=== PATIENT | male | born 2000 | race African-American/Black ===

== ENCOUNTER 2020-02-18 13:46 | Inpatient (IN) | payer MEDICAID, OTHER ==
[~2020-02-18] VITALS: Ht 175.3 cm; Wt 100.6 kg
[2020-02-18] MEDS ORDERED: SODIUM CHLORIDE 0.9% 1,000 ML IV ONE ×2 (13:52)
[2020-02-18] MEDS ORDERED: NALOXONE HCL 1MG/ML 2ML SYRINGE ONE (14:18)
[2020-02-18 14:19] LABS: Basophils # (auto) 0 10 ^3/uL (0-0.2); Basophils % (auto) 0.2 % (0.0-2.0); Eosinophils # (auto) 0 10 ^3/uL (0-0.8); Eosinophils % (auto) 0.1 % (0.0-7.0); Hematocrit 47.9 % (41.0-53.0); Hemoglobin 15.5 g/dL (13.5-17.5); Lymphocytes % (auto) 6.6 % (10.0-50.0); Mean Corpuscular Hemoglobin 30.7 pg (28.0-32.0); Mean Corpuscular Hgb Conc. 32.4 g/dL (32.0-36.0); Mean Corpuscular Volume 94.7 fL (80.0-100.0); Monocytes # (auto) 0.4 10 ^3/uL (0-1.3); Monocytes % (auto) 2.5 % (0.0-12.0); Neutrophils # (auto) 14.2 10 ^3/uL (1.6-8.6); Neutrophils % (auto) 90.6 % (37.0-80.0); Nucleated Red Blood Cells % 0.2 %; Platelet Count (auto) 222 10^3/uL (140-450); Red Blood Cells 5.06 10^6/uL (4.5-5.90); Red Cell Distribution Width 13.2 % (11.8-14.3); White Blood Cell 15.7 10^3/uL (4.4-10.8)
[2020-02-18] MEDS ORDERED: NALOXONE HCL 1MG/ML 2ML SYRINGE IV ONE (14:30)
[2020-02-18 14:35] LABS: Salicylate < 1.7 mg/dL (2.8-20.0)
[2020-02-18 14:36] LABS: Albumin 3.7 g/dL (3.4-5.0); Calcium 8.6 mg/dL (8.5-10.1); Potassium 3.1 mmol/L (3.5-5.1)
[2020-02-18 14:37] LABS: Acetaminophen < 2.0 ug/mL (10-30)
[2020-02-18 14:40] LABS: BUN/Creatinine Ratio 6.1; Bilirubin, Total 0.3 mg/dL (0.2-1.0); Total Protein 7.9 g/dL (6.4-8.2)
[2020-02-18] MEDS ORDERED: SODIUM CHLORIDE 0.9% 1,000 ML IV SCH (16:21)
[2020-02-18] MEDS ORDERED: SOD CHL 0.9%/ KCL 20MEQ 1,000 ML IV ONE (16:30)
[2020-02-18] MEDS ORDERED: ONDANSETRON HCL 4 MG/2 ML VIAL IV PRN ×2 (16:30→21:30)
[2020-02-18] MEDS ORDERED: MORPHINE SULF INJ 2 MG/ML SYRINGE 1ML IV PRN (16:30)
[2020-02-18] MEDS ORDERED: ZOLPIDEM TARTRATE 5 MG TAB PO PRN (16:30)
[2020-02-18] MEDS ORDERED: POTASSIUM CHL 20MEQ/100ML 100 ML IV ONE (16:30)
[2020-02-18] MEDS ORDERED: NITROGLYCERIN 0.4 MG SL TAB SL PRN ×2 (16:30)
[2020-02-18] MEDS ORDERED: POTASSIUM EFFERVESENT TAB 25 MEQ PO ONE (18:00)
[2020-02-18 20:48] LABS: Amphetamine Screen, Urine NEGATIVE (NEGATIVE); Barbiturate Scree,Urine NEGATIVE (NEGATIVE); Benzodiazephine Screen, Urine NEGATIVE (NEGATIVE); Cocaine Screen, Urine POSITIVE (NEGATIVE); Opiate Scree,Urine NEGATIVE (NEGATIVE); Phencyclidine Screen, Urine NEGATIVE (NEGATIVE)
[2020-02-18 20:56] LABS: Cannabinoid Screen, Urine POSITIVE (NEGATIVE)
[2020-02-18] MEDS ORDERED: LORazepam 2MG/ML-1ML VIAL IV PRN (21:15)
[2020-02-18] MEDS ORDERED: DEXTROSE (50%) 50ML SYRG IV PRN (21:30)
[2020-02-18] MEDS ORDERED: PANTOPRAZOLE 40 MG/10 ML VIAL INJ IV ONE (21:30)
[2020-02-18] MEDS: SODIUM CHLORIDE 0.9% 1,000 ML IV SCH ×4 (21:43→23:54)
[2020-02-18] MEDS: InsuLIN REG 1unit/0.01ml Soln (100units/ml) SC SCH (22:00)
[2020-02-18] MEDS: ACCU-CHEK COMFORT CURVE STRIP VI SCH (22:19)
--- NOTE | 2020-02-18 22:20 | NUR ---
Report received from Andres ADAMS.
--- NOTE | 2020-02-18 22:55 | NUR ---
Telemetry admit from ER WINNIE MASTERS admitted to Telemetry unit after SBAR received. Patient oriented to Ethel Sorensen, primary RN, unit, room, bed, and unit policies regarding patient care. Patient now on continuous telemetry monitoring, tele box # [id number] and telemetry reading on arrival to unit is normal sinus rhythm HR of 73. Patient placed on bedside oxygen 2 liters via nasal cannula, weighed by bedscale and encouraged to call if they need something. All questions and concerns addressed, patient verbalized understanding. Patient is alert and oriented x4. Patient has no S/S of distress/SOB or pain. Will continue to monitor Q1HR and PRN.
[2020-02-18 23:00] VITALS: BP 123/71
--- NOTE | 2020-02-18 23:22 | NUR ---
Received phone call from [employer] from poison control. Update provided.
[2020-02-19] MEDS ORDERED: INFLUENZA QUAD 2019-2020 0.5ml SYRG IM ONE (04:15)
--- NOTE | 2020-02-19 04:39 | NUR ---
12-lead EKG done as routine per MD order. Results show sinus rhythm HR of 75. Print out of EKG located in hard chart.
--- NOTE | 2020-02-19 05:00 | NUR ---
Hospitalist paged regarding clarification of order for IV fluid NS 0.9% at 150 ml/hr scheduled for Q7min. Awaiting callback at this time.
[2020-02-19 05:30] VITALS: BP 124/72
[2020-02-19 05:46] LABS: Basophils # (auto) 0 10 ^3/uL (0-0.2); Basophils % (auto) 0.1 % (0.0-2.0); Eosinophils # (auto) 0 10 ^3/uL (0-0.8); Eosinophils % (auto) 0.4 % (0.0-7.0); Hematocrit 41.8 % (41.0-53.0); Hemoglobin 13.9 g/dL (13.5-17.5); Lymphocytes # (auto) 1.9 10 ^3/uL (0.4-5.4); Lymphocytes % (auto) 16.4 % (10.0-50.0); Mean Corpuscular Hemoglobin 31.2 pg (28.0-32.0); Mean Corpuscular Hgb Conc. 33.2 g/dL (32.0-36.0); Monocytes # (auto) 0.5 10 ^3/uL (0-1.3); Monocytes % (auto) 4.6 % (0.0-12.0); Neutrophils # (auto) 9.2 10 ^3/uL (1.6-8.6); Neutrophils % (auto) 78.5 % (37.0-80.0); Nucleated Red Blood Cells % 0.1 %; Platelet Count (auto) 192 10^3/uL (140-450); Red Blood Cells 4.45 10^6/uL (4.5-5.90); Red Cell Distribution Width 13.1 % (11.8-14.3); White Blood Cell 11.7 10^3/uL (4.4-10.8)
--- NOTE | 2020-02-19 05:50 | NUR ---
Callback received from CARMEL Dorsey, regarding clarification of order for IV fluid NS 0.9% at 150 ml/hr scheduled for Q7min. New order received: NS 0.9% IV at 150 ml/hr Q7HR.
[2020-02-19 06:06] LABS: Potassium 3.8 mmol/L (3.5-5.1)
[2020-02-19 06:12] LABS: INR 1.03 (0.9-1.15); Partial Thromboplastin Time 25.6 sec (23.64-32.05)
[2020-02-19 06:14] LABS: Albumin 3.1 g/dL (3.4-5.0); BUN/Creatinine Ratio 9.8; Bilirubin, Total 0.4 mg/dL (0.2-1.0); Calcium 8.3 mg/dL (8.5-10.1); Phosphorus 3.7 mg/dL (2.5-4.90); Total Protein 6.6 g/dL (6.4-8.2)
[2020-02-19] MEDS: InsuLIN REG 1unit/0.01ml Soln (100units/ml) SC SCH (06:45)
[2020-02-19] MEDS: ACCU-CHEK COMFORT CURVE STRIP VI SCH (06:45)
--- NOTE | 2020-02-19 07:00 | NUR ---
CLOSING NOTE Patient is on 2 liters of oxygen via nasal cannula. Respirations even and unlabored. Patient has no S/S of distress/SOB or pain.
--- NOTE | 2020-02-19 07:10 | NUR ---
OPENING SHIFT NOTE Assumed care of patient from corporate vp advertising & online RN. Patient is alert and oriented x4, no signs of distress noted, patient denies pain. Patient was updated on the plan of care and verbalized understanding. Patient is on oxygen via Nasal Cannula at 2L/min saturation 95%. bed is locked, in the lowest position, side rails up x2 and call light is in reach. Patient was encouraged to call for assistance as needed.
[2020-02-19] MEDS ORDERED: SODIUM CHLORIDE 0.9% 1,000 ML IV SCH (07:30)
[2020-02-19 09:00] VITALS: BP 128/66
--- NOTE | 2020-02-19 09:20 | NUR ---
Pt is an alert and oriented male that came in for accidental overdose. Pt states he resides with his girlfriend and is currently not working. Pt states he did not intentionally overdose. He admits to alcohol usage but does not feel that its abusive. States he has no intentions of wanting to harm himself. Verbalizes stressors as a result of the Pandemic. Provided supportive listening and education regarding appropriate coping mechanisms. Pt to be provided alcohol abuse resources by [facility]. will continue to monitor and provide intervention as appropriate. Addendum: 02/19/20 at 1616 by ROB JIM Amended: Links added.
[2020-02-19] MEDS: DOCUSATE SOD 100 MG CAP PO SCH (09:39)
[2020-02-19] MEDS ORDERED: ENOXAPARIN SOD 40 MG/0.4 ML SYRINGE SC SCH (10:00)
[2020-02-19] MEDS ORDERED: PANTOPRAZOLE 40 MG/10 ML VIAL INJ IV SCH (10:00)
--- NOTE | 2020-02-19 10:46 | NUR ---
KEVIN AT BEDSIDE Updated on patient status, plan of care reviewed and patient verbalized understanding.
--- NOTE | 2020-02-19 10:52 | NUR ---
CALLED RADIOLOGY for patient to be taken for XRAY per MD orders, tech stated they would send someone up to transport the patient down.
--- NOTE | 2020-02-19 11:42 | NUR ---
Received referral to see pt for substance use, no PCP and concerns about insurance coverage. The pt was referred to Samantha May, Pt installation service representative to assist in assigning the pt a PCP. Pt is currently listed as not having current insurance. Pt states they are currently listed as unemployed. Discussed with pt eligibility options for medical coverage based on current situation. Pt referred to Ricardo Cottrell, [facility] travel service consultant to assist with process for [employer] insurance coverage. Advised pt that additional information regarding D/C planning would be provided prior to his discharge. Will follow up with Ricardo regarding insurance status. product development worker provided pt with a [facility] Substance abuse Packet with various resources on treatment.
[2020-02-19] MEDS ORDERED: FUROSEMIDE 20 MG/2 ML VIAL IV ONE (12:00)
[2020-02-19] MEDS ORDERED: POTASSIUM CHL 20 Meq TABLET PO ONE (12:00)
[2020-02-19] MEDS ORDERED: levoFLOXacin 500MG 100 ML IV ONE (12:00)
--- NOTE | 2020-02-19 12:07 | NUR ---
According to Mr Ricardo Cottrell, pt's, medi-[employer] was secured.
--- NOTE | 2020-02-19 12:35 | NUR ---
CALL FROM POISON CONTROL career representative Tati updated on the patient status. stated "toxicology regalado he shouldn't get worse, it sounds like he just needs medical management on your end."
[2020-02-19 13:00] VITALS: BP 132/75
[2020-02-19 17:20] VITALS: BP 135/70
--- NOTE | 2020-02-19 19:45 | NUR ---
received report from day rn poc reviewed
[2020-02-19 21:36] VITALS: BP 137/85
--- NOTE | 2020-02-20 00:32 | NUR ---
awoke resting comfortable with eyes open resp even and unlabored, no c/o distress
[2020-02-20 05:00] VITALS: BP 126/71
[2020-02-20 06:42] LABS: Basophils # (auto) 0 10 ^3/uL (0-0.2); Basophils % (auto) 0.2 % (0.0-2.0); Eosinophils # (auto) 0.1 10 ^3/uL (0-0.8); Hematocrit 44.7 % (41.0-53.0); Lymphocytes # (auto) 1.8 10 ^3/uL (0.4-5.4); Lymphocytes % (auto) 20.4 % (10.0-50.0); Mean Corpuscular Hemoglobin 31.4 pg (28.0-32.0); Mean Corpuscular Hgb Conc. 33.5 g/dL (32.0-36.0); Mean Corpuscular Volume 93.8 fL (80.0-100.0); Monocytes # (auto) 0.6 10 ^3/uL (0-1.3); Monocytes % (auto) 7.2 % (0.0-12.0); Neutrophils # (auto) 6.2 10 ^3/uL (1.6-8.6); Neutrophils % (auto) 71.2 % (37.0-80.0); Nucleated Red Blood Cells % 0.1 %; Platelet Count (auto) 209 10^3/uL (140-450); Red Blood Cells 4.77 10^6/uL (4.5-5.90); Red Cell Distribution Width 13.1 % (11.8-14.3); White Blood Cell 8.7 10^3/uL (4.4-10.8)
[2020-02-20 07:07] LABS: BUN/Creatinine Ratio 8.2; Calcium 9.1 mg/dL (8.5-10.1); Potassium 3.6 mmol/L (3.5-5.1)
--- NOTE | 2020-02-20 07:12 | NUR ---
pt has been calm all night report given to am nurse poc reviewed
--- NOTE | 2020-02-20 07:20 | NUR ---
OPENING SHIFT NOTE Assumed care of patient from night monitor RN. Patient is alert and oriented x4, no signs of distress noted, patient denies pain. Patient was updated on the plan of care and verbalized understanding. Bed is locked, in the lowest position, side rails up x2 and call light is in reach. Patient was encouraged to call for assistance as needed.
[2020-02-20 09:00] VITALS: BP 132/64
--- NOTE | 2020-02-20 09:35 | NUR ---
LAURENT AT BEDSIDE. was updated on patient status, plan of care discussed with patient and he verbalized understanding but states that he will leave if he is not discharged today. MD educated patient on street drug use and risks if he continues to use them, he verbalized understanding.
[2020-02-20] MEDS: DOCUSATE SOD 100 MG CAP PO SCH (09:52)
[2020-02-20] MEDS ORDERED: levoFLOXacin 500MG 100 ML IV SCH (10:00)
[2020-02-20 13:00] VITALS: BP 132/82
--- NOTE | 2020-02-20 13:42 | NUR ---
LAURENT PAGED to notify of patient leaving AMA.
--- NOTE | 2020-02-20 13:47 | NUR ---
AMA Note WINNIE MASTERS states they want to leave the hospital Against Medical Advice (AMA). Patient encouraged to stay for further treatment/stabilization. Chilo Mina MD notified of patient's wishes. Patient advised of the risks of leaving AMA, including sepsis and worsening infection. Patient verbalized understanding. Patient encouraged to return to the ER if symptoms do not improve or worsen. IV removed with clean technique and pressure dressing applied. Prescription given to patient as requested by .
== END 2020-02-20 13:47 | disposition left against medical advice (07) | DRG 816 ==
LOC: ER 13:46 → EDBD 13:46 → TELE 13:47 → TELE-CENTR 22:55 → CENTRAL 02-19 11:08
PROVIDERS: ADMIT Hospitalist; ATTEND Internal Medicine
DX: T40.5X1A Poisoning by cocaine, accidental (unintentional), initial encounter (principal); G92 Toxic encephalopathy; J18.9 Pneumonia, unspecified organism; F17.210 Nicotine dependence, cigarettes, uncomplicated; R00.0 Tachycardia, unspecified; E87.6 Hypokalemia; E66.9 Obesity, unspecified; F19.10 Other psychoactive substance abuse, uncomplicated; F17.200 Nicotine dependence, unspecified, uncomplicated; E87.70 Fluid overload, unspecified; Z53.29 Procedure and treatment not carried out because of patient's decision for other reasons
CPT/HCPCS: 36415; 71045; 71046; 80048; 80053; 80061; 80307; 80320; 80329; 82306; 82962; 83036; 83735; 84100; 85025; 85610; 85730; 93005; C9113; G0378; J1956; J2405; J3480

== ENCOUNTER → 2020-02-29 | Emergency (ER) | payer MEDICAID, OTHER ==
[~2020-02-29] VITALS: Ht 170.2 cm; Wt 88.5 kg
[2020-02-29 14:05] VITALS: BP 127/82
== END | disposition home or self-care (01) ==
LOC: ER 13:54
DX: J40 Bronchitis, not specified as acute or chronic (principal); F17.210 Nicotine dependence, cigarettes, uncomplicated
CPT/HCPCS: 71046

== ENCOUNTER 2023-02-02 22:08 | Emergency (ER) | payer MEDICAID ==
[~2023-02-02] VITALS: Ht 170.2 cm; Wt 101.0 kg
[2023-02-02 22:54] LABS: Urine Bacteria NONE SEEN /hpf (None Seen); Urine Blood Negative /uL (Negative); Urine Specific Gravity 1.009 (1.001-1.035); Urine WBC 1 /hpf (0 - 3)
[2023-02-02 23:37] LABS: Basophils # (auto) 0 10 ^3/uL (0-0.2); Basophils % (auto) 0.2 % (0.0-2.0); Eosinophils # (auto) 0.1 10 ^3/uL (0-0.8); Eosinophils % (auto) 0.9 % (0.0-7.0); Hematocrit 42.5 % (41.0-53.0); Hemoglobin 14.7 g/dL (13.5-17.5); Lymphocytes # (auto) 1.6 10 ^3/uL (0.4-5.4); Lymphocytes % (auto) 22.4 % (10.0-50.0); Mean Corpuscular Hemoglobin 32.2 pg (28.0-32.0); Mean Corpuscular Hgb Conc. 34.5 g/dL (32.0-36.0); Mean Corpuscular Volume 93.2 fL (80.0-100.0); Monocytes # (auto) 0.4 10 ^3/uL (0-1.3); Monocytes % (auto) 6.1 % (0.0-12.0); Neutrophils % (auto) 70.4 % (37.0-80.0); Nucleated Red Blood Cells % 0.1 %; Red Blood Cells 4.56 10^6/uL (4.5-5.90); Red Cell Distribution Width 13.6 % (11.8-14.3); White Blood Cell 7.2 10^3/uL (4.4-10.8)
[2023-02-02 23:55] LABS: Albumin 3.6 g/dL (3.4-5.0); Calcium 9.3 mg/dL (8.5-10.1); Potassium 3.7 mmol/L (3.5-5.1)
[2023-02-02 23:58] LABS: Bilirubin, Total 0.2 mg/dL (0.2-1.0); Total Protein 7.2 g/dL (6.4-8.2)
[2023-02-03] MEDS ORDERED: PANT40TA2 PO (07:02)
[2023-02-03] MEDS ORDERED: DONNATAL 5ml ORAL Elix (BELLADONNA ALK-PHENOBARB) PO ONE (07:15)
[2023-02-03] MEDS ORDERED: MAALOX PLUS or MAALOX 30 ML PO ONE (07:15)
[2023-02-03] MEDS ORDERED: LIDOCAINE VISCOUS 2% 15ML UD PO ONE (07:15)
[2023-02-03 07:43] VITALS: BP 148/102
== END 2023-02-03 07:44 | disposition home or self-care (01) ==
LOC: ER 22:08
DX: K29.70 Gastritis, unspecified, without bleeding (principal); F17.210 Nicotine dependence, cigarettes, uncomplicated; F12.10 Cannabis abuse, uncomplicated; F15.10 Other stimulant abuse, uncomplicated; F14.10 Cocaine abuse, uncomplicated
CPT/HCPCS: 36415; 80053; 81001; 83690; 85025

== ENCOUNTER 2023-04-01 03:51 | Emergency (ER) | payer MEDICAID ==
[~2023-04-01] VITALS: Ht 175.3 cm; Wt 90.0 kg
[~2023-04-01 03:51] MED LIST: PANT40TA2 PO
[2023-04-01 04:17] VITALS: BP 109/74
== END 2023-04-02 04:20 | disposition left against medical advice (07) ==
LOC: ER 03:51 → EDBD 03:51 → ER 04-02 04:20
DX: F10.129 Alcohol abuse with intoxication, unspecified (principal); R07.89 Other chest pain; R04.0 Epistaxis; Z53.21 Procedure and treatment not carried out due to patient leaving prior to being seen by health care provider; V89.2XXA Person injured in unspecified motor-vehicle accident, traffic, initial encounter; Y93.89 Activity, other specified; Y92.89 Other specified places as the place of occurrence of the external cause; Y99.8 Other external cause status; Y90.9 Presence of alcohol in blood, level not specified
CPT/HCPCS: 71045